=== PATIENT | female | born 1990 | race Caucasian/White ===

== ENCOUNTER 2016-11-14 20:44 | Inpatient (IN) | payer OTHER ==
[2016-11-14] MEDS ORDERED: Ondansetron 4 MG/2 ML SDV IVPUSH ONE (20:56)
[2016-11-14] MEDS ORDERED: Sodium Chloride 0.9% 1,000 ML IV ONE ×2 (20:56→23:36)
[2016-11-14] MEDS ORDERED: Morphine 10 MG/ML Syringe IV ONE (21:02)
--- NOTE | 2016-11-14 21:04 | EDM.PDOC ---
ED HPI GENERAL MEDICAL PROBLEM - General Chief Complaint: Abdominal Pain Stated Complaint: ABDOMINAL PAIN Time Seen by Provider: 11/14/16 21:02 Source of Information: Reports: Patient - History of Present Illness INITIAL COMMENTS - FREE TEXT/NARRATIVE: HISTORY AND PHYSICAL: History of present illness: Patient presents with abdominal pain right upper and lower quadrant pain she rates 8 out of 10 she has been anorexic over the last 24 hours with nausea no vomiting denies fever chills sweats She was seen today for [facility] and sounds like plain film x-rays were performed however she does not know results Previous cholecystectomy End history of PCO S Review of systems: As per history of present illness and below otherwise all systems reviewed and negative. Past medical history: As per history of present illness and as reviewed below otherwise noncontributory. Surgical history: As per history of present illness and as reviewed below otherwise noncontributory. Social history: No reported history of drug or alcohol abuse. Family history: As per history of present illness and as reviewed below otherwise noncontributory. Physical exam: HEENT: Atraumatic, normocephalic, pupils reactive, negative for conjunctival pallor or scleral icterus, mucous membranes moist, throat clear, neck supple, nontender, trachea midline. Lungs: Clear to auscultation, breath sounds equal bilaterally, chest nontender. Heart: S1S2, regular, negative for clicks, rubs, or JVD. Abdomen: Soft, nondistended, nontender on the left right lower quadrant is tender with guarding no rebound she is also tender on deep palpation right upper quadrant. Negative for masses or hepatosplenomegaly. Negative for costovertebral tenderness. Pelvis: Stable nontender. Genitourinary: Deferred. Rectal: Deferred. Extremities: Atraumatic, negative for cords or calf pain. Neurovascular unremarkable. Neuro: Awake, alert, oriented. Cranial nerves II through XII unremarkable. Cerebellum unremarkable. Motor and sensory unremarkable throughout. Exam nonfocal. Diagnostics: []Lab as below CT abdomen pelvis with and without contrast Therapeutics: []Liter normal saline bolus Zofran 8 mg IV Morphine 2 mg IV Impression: []Abdominal pain Acute pancreatitis Definitive disposition and diagnosis as appropriate pending reevaluation and review of above. 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, Musculoskeletal History: Reports: None Neurological History: Reports: None Psychiatric History: Reports: Anxiety, Depression Endocrine/Metabolic History: Reports: Hypoparathyroidism Hematologic History: Reports: None Immunologic History: Reports: None Oncologic (Cancer) History: Reports: None Dermatologic History: Reports: None - Infectious Disease History Infectious Disease History: Reports: None - Past Surgical History Head Surgeries/Procedures: Reports: None HEENT Surgical History: Reports: None Cardiovascular Surgical History: Reports: None Respiratory Surgical History: Reports: None GI Surgical History: Reports: Cholecystectomy Endocrine Surgical History: Reports: None Neurological Surgical History: Reports: None Dermatological Surgical History: Reports: None Social & Family History - Family History Family Medical History: Noncontributory - Tobacco Use Smoking Status *Q: Never Smoker - Caffeine Use Caffeine Use: Reports: Coffee, Soda - Recreational Drug Use Recreational Drug Use: No ED ROS GENERAL - Review of Systems Review Of Systems: ROS reveals no pertinent complaints other than HPI. ED EXAM, GENERAL - Physical Exam Exam: See Below Course - Vital Signs Last Recorded V/S: Last Vital Signs Temp 36.3 C 11/14/16 20:53 Pulse 101 H 11/14/16 20:53 Resp 18 11/14/16 20:53 BP 126/87 11/14/16 20:53 Pulse Ox 98 11/14/16 20:53 - Orders/Labs/Meds Orders: Active Orders 24 hr Category Date Time Status Abdomen Pelvis w wo Cont [CT] Stat Exams 11/14/16 21:02 Taken Labs: Laboratory Tests 11/14/16 11/14/16 11/14/16 Range/Units 20:50 20:50 21:08 WBC 10.13 (4.0-11.0) K/uL RBC 4.86 (4.30-5.90) M/uL Hgb 14.6 (12.0-16.0) g/dL Hct 43.9 (36.0-46.0) % MCV 90.3 (80.0-98.0) fL MCH 30.0 (27.0-32.0) pg MCHC 33.3 (31.0-37.0) g/dL RDW Std Deviation 43.1 (28.0-62.0) fl RDW Coeff of Jeane 13 (11.0-15.0) % Plt Count 206 (150-400) K/uL MPV 11.50 (7.40-12.00) fL Neut % (Auto) 56.6 (48.0-80.0) % Lymph % (Auto) 32.6 (16.0-40.0) % [place] % (Auto) 8.3 (0.0-15.0) % Eos % (Auto) 2.2 (0.0-7.0) % Baso % (Auto) 0.3 (0.0-1.5) % Neut # (Auto) 5.7 (1.4-5.7) K/uL Lymph # (Auto) 3.3 H (0.6-2.4) K/uL [place] # (Auto) 0.8 (0.0-0.8) K/uL Eos # (Auto) 0.2 (0.0-0.7) K/uL Baso # (Auto) 0.0 (0.0-0.1) K/uL Nucleated RBC % 0.0 /100WBC Nucleated RBCs # 0 K/uL Sodium (136-146) mmol/L Potassium (3.5-5.1) mmol/L Chloride (98-110) mmol/L Carbon Dioxide (21-31) mmol/L BUN (6.0-23.0) mg/dL Creatinine (0.6-1.5) mg/dL Est Cr Clr Drug Dosing mL/min Estimated GFR (MDRD) ml/min Glucose (60-110) mg/dL Calcium (8.8-10.8) mg/dL Total Bilirubin (0.1-1.5) mg/dL AST (5-40) IU/L ALT (8-54) IU/L Alkaline Phosphatase (40-150) Total Protein (6.0-8.0) g/dL Albumin (3.5-5.0) g/dL Globulin (2.0-3.5) g/dL Albumin/Globulin Ratio (1.3-2.8) Amylase (10-90) U/L Lipase (7-80) U/L Urine Color YELLOW Urine Appearance CLEAR Urine pH 6.0 (5.0-8.0) Ur Specific [place] 1.020 (1.001-1.035) Urine Protein NEGATIVE (NEGATIVE) mg/dL Urine Glucose (UA) NEGATIVE (NEGATIVE) mg/dL Urine Ketones NEGATIVE (NEGATIVE) mg/dL Urine Occult Blood NEGATIVE (NEGATIVE) Urine Nitrite NEGATIVE (NEGATIVE) Urine Bilirubin NEGATIVE (NEGATIVE) Urine Urobilinogen 0.2 (<2.0) EU/dL Ur Leukocyte Esterase NEGATIVE (NEGATIVE) Urine RBC 0-3 (0-2/HPF) Urine WBC 2-4 (0-5/HPF) Ur Epithelial Cells MODERATE (NONE-FEW) Urine Bacteria FEW (NEGATIVE) Urine HCG, Qual NEGATIVE (NEGATIVE) 11/14/16 Range/Units 21:08 WBC (4.0-11.0) K/uL RBC (4.30-5.90) M/uL Hgb (12.0-16.0) g/dL Hct (36.0-46.0) % MCV (80.0-98.0) fL MCH (27.0-32.0) pg MCHC (31.0-37.0) g/dL RDW Std Deviation (28.0-62.0) fl RDW Coeff of Jeane (11.0-15.0) % Plt Count (150-400) K/uL MPV (7.40-12.00) fL Neut % (Auto) (48.0-80.0) % Lymph % (Auto) (16.0-40.0) % [place] % (Auto) (0.0-15.0) % Eos % (Auto) (0.0-7.0) % Baso % (Auto) (0.0-1.5) % Neut # (Auto) (1.4-5.7) K/uL Lymph # (Auto) (0.6-2.4) K/uL [place] # (Auto) (0.0-0.8) K/uL Eos # (Auto) (0.0-0.7) K/uL Baso # (Auto) (0.0-0.1) K/uL Nucleated RBC % /100WBC Nucleated RBCs # K/uL Sodium 138 (136-146) mmol/L Potassium 4.1 (3.5-5.1) mmol/L Chloride 106 (98-110) mmol/L Carbon Dioxide 23 (21-31) mmol/L BUN 9 (6.0-23.0) mg/dL Creatinine 0.8 (0.6-1.5) mg/dL Est Cr Clr Drug Dosing 104.54 mL/min Estimated GFR (MDRD) > 60.0 ml/min Glucose 106 (60-110) mg/dL Calcium 9.2 (8.8-10.8) mg/dL Total Bilirubin 0.4 (0.1-1.5) mg/dL AST 154 H (5-40) IU/L ALT 288 H (8-54) IU/L Alkaline Phosphatase 53 (40-150) Total Protein 7.8 (6.0-8.0) g/dL Albumin 4.2 (3.5-5.0) g/dL Globulin 3.6 H (2.0-3.5) g/dL Albumin/Globulin Ratio 1.2 L (1.3-2.8) Amylase 82 (10-90) U/L Lipase 131 H (7-80) U/L Urine Color Urine Appearance Urine pH (5.0-8.0) Ur Specific [place] (1.001-1.035) Urine Protein (NEGATIVE) mg/dL Urine Glucose (UA) (NEGATIVE) mg/dL Urine Ketones (NEGATIVE) mg/dL Urine Occult Blood (NEGATIVE) Urine Nitrite (NEGATIVE) Urine Bilirubin (NEGATIVE) Urine Urobilinogen (<2.0) EU/dL Ur Leukocyte Esterase (NEGATIVE) Urine RBC (0-2/HPF) Urine WBC (0-5/HPF) Ur Epithelial Cells (NONE-FEW) Urine Bacteria (NEGATIVE) Urine HCG, Qual (NEGATIVE) Meds: Medications Discontinued Medications Generic Name Dose Route Start Last Admin Trade Name Freq PRN Reason Stop Dose Admin Hydromorphone HCl 1 mg 11/14/16 22:31 Dilaudid IVPUSH 11/14/16 22:32 ONETIME ONE Sodium Chloride 1,000 mls @ 999 mls/hr 11/14/16 20:56 11/14/16 21:13 Normal Saline IV 11/14/16 21:56 999 mls/hr STAT ONE Administration Iopamidol 100 ml 11/14/16 22:04 11/14/16 22:04 Isovue Multipack-370 (76%) IVPUSH 11/14/16 22:05 100 ml ONETIME STA Administration Morphine Sulfate 2 mg 11/14/16 21:02 11/14/16 21:16 Morphine IV 11/14/16 21:03 2 mg ONETIME ONE Administration Ondansetron HCl 8 mg 11/14/16 20:56 11/14/16 21:14 Zofran IVPUSH 11/14/16 20:57 8 mg ONETIME ONE Administration Departure - Departure Time of Disposition: 22:35 Disposition: Admitted As Inpatient 67 Condition: Fair Clinical Impression: Pancreatitis - Discharge Information Forms: ED Department Discharge - My Orders Last 24 Hours: My Active Orders 11/14/16 21:02 Abdomen Pelvis w wo Cont [CT] Stat - Assessment/Plan Last 24 Hours: My Active Orders 11/14/16 21:02 Abdomen Pelvis w wo Cont [CT] Stat
[2016-11-14 21:36] LABS: CHLORIDE,CL 106 mmol/L (98-110); SODIUM,NA 138 mmol/L (136-146)
[2016-11-14] MEDS ORDERED: Iopamidol 755 MG/ML 500 ML Multipack Bottle IVPUSH STA (22:04)
[2016-11-14] MEDS ORDERED: HYDROmorphone 2 MG/ML Syringe IVPUSH ONE (22:31)
[2016-11-14] MEDS ORDERED: Sodium Chloride 0.9% 1,000 ML IV SCH (22:45)
[2016-11-14] MEDS: HYDROmorphone 1 MG/ML Syringe IVPUSH PRN (23:56)
[2016-11-15] MEDS: Sodium Chloride 0.9% 1,000 ML IV SCH ×5 (00:33→20:24)
[2016-11-15] MEDS: HYDROmorphone 1 MG/ML Syringe IVPUSH PRN ×3 (04:47→21:56)
[2016-11-15] MEDS: Ondansetron 4 MG/2 ML SDV IVPUSH PRN ×4 (04:53→21:35)
[2016-11-15 05:26] LABS: CHLORIDE,CL 110 mmol/L (98-110); SODIUM,NA 140 mmol/L (136-146)
--- NOTE | 2016-11-15 11:34 | PCM.HP ---
H&P History of Present Illness - General Date of Service: 11/15/16 Admit Problem/Dx: Admission Diagnosis/Problem Admission Diagnosis/Problem Acute pancreatitis - History of Present Illness Initial Comments - Free Text/Narative: patient is admitted secondary to having epigastric abdominal pain since . Patient states that the pain progressively as gotten worse initially just mild in nature midepigastric pain with no other related symptoms. However over the course of the day patient started to feel nauseous and the pain became increasingly worse. On the next day the patient was unable to tolerate any by mouth without having severe abdominal pain. The patient stated it felt almost like she was having gallstones however she has had a cholecystectomy already done previously. Patient also became increasingly nauseous. Described the pain as sharp in nature 8 out of 10 in pain. She was unable to sleep overnight and decided to come to the ER secondary to her severe pain. In the ER the patient received antiemetic medication along with pain medication had laboratory work done which showed an elevation of her lipase level along with elevation of her AST and MALT. The patient also had a CT of the abdomen done which showed inflammation of her pancreas likely due to acute pancreatitis however one ulcers could not be ruled out. We did ask the patient if she did have any blood in her stool which the patient denies. Patient does have a past medical history of PCO S for which she was on metformin however she was unable to tolerate it. Up until last month she was on medications to help in terms of becoming however the family has decided just to hold off on that. Currently the only medication that she is on is levothyroxine for hypothyroidism. The patient stated that on Thursday due to her pain she did go in and see a walk-in clinic who felt that the patient might have a UTI and prescribed her an antibiotic which the patient did not take. Onset of Symptoms: Reports: Gradual abdominal pain Pain Score (Numeric/FACES): 0 - Related Data Allergies/Adverse Reactions: Allergies Allergy/AdvReac Type Severity Reaction Status Date / Time crab Allergy Abdominal Verified 11/14/16 23:08 Pain Penicillins Allergy Other Verified 11/14/16 20:51 Sulfa (Sulfonamide Allergy Other Verified 11/14/16 20:51 Antibiotics) Home Medications: Home Meds Sertraline [Zoloft] 50 mg PO BEDTIME 11/14/16 [History] Thyroid,Pork [[place]ie Thyroid] 1 tab PO DAILY 11/14/16 [History] Past Medical History HEENT History: Reports: None Cardiovascular History: Reports: None Respiratory History: Reports: Asthma, Other (See Below) Other Respiratory History: exercise induced Gastrointestinal History: Reports: None Genitourinary History: Reports: None 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, Musculoskeletal History: Reports: None Neurological History: Reports: None Psychiatric History: Reports: Anxiety, Depression Endocrine/Metabolic History: Reports: Hypoparathyroidism Hematologic History: Reports: None Immunologic History: Reports: None Oncologic (Cancer) History: Reports: None Dermatologic History: Reports: None - Infectious Disease History Infectious Disease History: Reports: Chicken Pox - Past Surgical History Head Surgeries/Procedures: Reports: None HEENT Surgical History: Reports: None Cardiovascular Surgical History: Reports: None Respiratory Surgical History: Reports: None GI Surgical History: Reports: Cholecystectomy Endocrine Surgical History: Reports: None Neurological Surgical History: Reports: None Dermatological Surgical History: Reports: None Social & Family History - Family History Family Medical History: Noncontributory - Tobacco Use Smoking Status *Q: Never Smoker Second Hand Smoke Exposure: No - Caffeine Use Caffeine Use: Reports: Coffee, Soda - Recreational Drug Use Recreational Drug Use: No H&P Review of Systems - Review of Systems: Review Of Systems: ROS reveals no pertinent complaints other than HPI. Exam - Exam Exam: See Below - Vital Signs Vital Signs: Last Vital Signs Temp 36.6 C 11/15/16 08:00 Pulse 90 11/15/16 08:00 Resp 18 11/15/16 08:00 BP 99/57 L 11/15/16 08:00 Pulse Ox 97 11/15/16 08:00 Weight: 118.5 kg - Exam General: Alert, Oriented Neck: Supple Lungs: Clear to Auscultation, Normal Respiratory Effort Cardiovascular: Regular Rate, Regular Rhythm GI/Abdominal Exam: Normal Bowel Sounds, Guarding, Rigid, Tender Extremities: Normal Inspection, Normal Range of Motion - Patient Data Lab Results Last 24 hrs: Laboratory Results - last 24 hr 11/15/16 11/15/16 Range/Units 04:50 04:50 WBC 7.04 (4.0-11.0) K/uL RBC 4.37 (4.30-5.90) M/uL Hgb 13.2 (12.0-16.0) g/dL Hct 39.9 (36.0-46.0) % MCV 91.3 (80.0-98.0) fL MCH 30.2 (27.0-32.0) pg MCHC 33.1 (31.0-37.0) g/dL RDW Std Deviation 43.8 (28.0-62.0) fl RDW Coeff of Jeane 13 (11.0-15.0) % Plt Count 158 (150-400) K/uL MPV 11.40 (7.40-12.00) fL Neut % (Auto) 63.9 (48.0-80.0) % Lymph % (Auto) 28.6 (16.0-40.0) % [place] % (Auto) 5.4 (0.0-15.0) % Eos % (Auto) 1.8 (0.0-7.0) % Baso % (Auto) 0.3 (0.0-1.5) % Neut # (Auto) 4.5 (1.4-5.7) K/uL Lymph # (Auto) 2.0 (0.6-2.4) K/uL [place] # (Auto) 0.4 (0.0-0.8) K/uL Eos # (Auto) 0.1 (0.0-0.7) K/uL Baso # (Auto) 0.0 (0.0-0.1) K/uL Nucleated RBC % 0.0 /100WBC Nucleated RBCs # 0 K/uL Sodium 140 (136-146) mmol/L Potassium 4.3 (3.5-5.1) mmol/L Chloride 110 (98-110) mmol/L Carbon Dioxide 23 (21-31) mmol/L BUN 7 (6.0-23.0) mg/dL Creatinine 0.7 (0.6-1.5) mg/dL Est Cr Clr Drug Dosing 119.47 mL/min Estimated GFR (MDRD) > 60.0 ml/min Glucose 100 (60-110) mg/dL Calcium 8.0 L (8.8-10.8) mg/dL Total Bilirubin 0.6 (0.1-1.5) mg/dL AST 117 H (5-40) IU/L ALT 220 H (8-54) IU/L Alkaline Phosphatase 45 (40-150) Total Protein 6.3 (6.0-8.0) g/dL Albumin 3.4 L (3.5-5.0) g/dL Globulin 2.9 (2.0-3.5) g/dL Albumin/Globulin Ratio 1.2 L (1.3-2.8) Triglycerides 134 (10-190) mg/dL Cholesterol 169 (131-240) mg/dL LDL Cholesterol, Calc 116 (60-180) mg/dL VLDL Cholesterol 27 (5-55) mg/dL HDL Cholesterol 26 L (40-80) mg/dL Cholesterol/HDL Ratio 6.5 H (3.3-6.0) Result Diagrams: 11/15/16 04:50 11/15/16 04:50 *Q Meaningful Use (ADM) - VTE *Q VTE Criteria *Q: - Stroke *Q Stroke Criteria *Q: - AMI *Q AMI Criteria *Q: - Problem List (1) Pancreatitis SNOMED Code(s): 56708581 ICD Code: K85.90 - ACUTE PANCREATITIS WITHOUT NECROSIS OR INFECTION, UNSP Status: Acute Current Visit: Yes (2) Abdominal pain SNOMED Code(s): 29334959 ICD Code: R10.9 - UNSPECIFIED ABDOMINAL PAIN Status: Acute Current Visit : No Qualifiers: Abdominal location: right lower quadrant Qualified Code(s): R10.31 - Right lower quadrant pain Problem List Initiated/Reviewed/Updated: Yes Orders Last 24hrs: Active Orders 24 hr Category Date Time Status Nothing Per Oral Diet [DIET] Diet 11/14/16 Dinner Active Abdomen Ltd [] Routine Exams 11/15/16 11:16 Ordered HYDROmorphone [Dilaudid] Med 11/14/16 23:38 Active 1 mg IVPUSH Q2H PRN Ondansetron [Zofran] Med 11/14/16 23:38 Active 4 mg IVPUSH Q4H PRN Pantoprazole [ProTONIX IV] 40 mg Med 11/15/16 11:30 Active Sodium Chloride 0.9% [Normal Saline] 10 ml IVPUSH DAILY Sodium Chloride 0.9% [Normal Saline] 1,000 ml Med 11/14/16 23:45 Active IV ASDIRECTED Medication Orders Hydromorphone HCl (Dilaudid) 1 mg IVPUSH Q2H PRN PRN Reason: Pain Last Admin: 11/15/16 10:16 Dose: 1 mg Admin: 11/15/16 04:47 Dose: 1 mg Admin: 11/14/16 23:56 Dose: 1 mg Sodium Chloride (Normal Saline) 1,000 mls @ 200 mls/hr IV ASDIRECTED [facility] Last Admin: 11/15/16 10:24 Dose: 200 mls/hr Infusion: 11/15/16 10:16 Dose: 200 mls/hr Admin: 11/15/16 05:16 Dose: 200 mls/hr Infusion: 11/15/16 05:16 Dose: 200 mls/hr Admin: 11/15/16 00:33 Dose: 200 mls/hr Pantoprazole Sodium 40 mg/ (Sodium Chloride) 10 mls @ 300 mls/hr IVPUSH DAILY [facility] Ondansetron HCl (Zofran) 4 mg IVPUSH Q4H PRN PRN Reason: Nausea/Vomiting Last Admin: 11/15/16 10:16 Dose: 4 mg Admin: 11/15/16 04:53 Dose: 4 mg Assessment/Plan Comment:: assessment and plan #1. Acute epigastric pain with nausea and vomiting with elevated lipase and transaminase levelsalong with a CT of the abdomen that shows inflammation/ edematous pancreas most likely etiology is acute pancreatitis other etiologies to consider include duodenal ulcer which also can produce elevated lipase levels and similar epigastric/abdominal pain -Aggressive IV fluids at a rate of 200 mL per hour -Adequate pain control with Dilaudid every 2 hr 1 mg IV push -Zofran scheduled to control nausea vomiting -BMP followed to ensure appropriate lytes -Patient shall be nothing by mouth with minimum ice chips to ensure appropriate bowel rest -Shall get abdomen ultrasound to ensure no gallstones or ductal dilation -Start Protonix 40 mg IV daily for possible duodenal ulcer -Continue to follow the patient and ensure vitals are stable along with appropriate I's and O's. Admit greater than 2 midnights inpatient status
[2016-11-15] MEDS: Pantoprazole 40 MG in Sodium Chloride 0.9% 10 ML IVPUSH SCH (11:48)
[2016-11-15] MEDS: Morphine 2 MG/ML Syringe IVPUSH PRN ×2 (16:29→19:35)
[2016-11-16] MEDS: Sodium Chloride 0.9% 1,000 ML IV SCH ×5 (01:27→22:26)
[2016-11-16] MEDS: Ondansetron 4 MG/2 ML SDV IVPUSH PRN ×5 (01:28→19:41)
[2016-11-16] MEDS: HYDROmorphone 1 MG/ML Syringe IVPUSH PRN ×6 (01:50→22:31)
[2016-11-16 05:25] LABS: CHLORIDE,CL 110 mmol/L (98-110); SODIUM,NA 139 mmol/L (136-146)
--- NOTE | 2016-11-16 08:40 | PCM.PN ---
- Review of Systems Systems Review Comment:: abdominal pain improving. - Patient Data Vitals - Most Recent: Last Vital Signs Temp 37.1 C 11/16/16 07:56 Pulse 98 11/16/16 07:56 Resp 16 11/16/16 07:56 BP 105/58 L 11/16/16 07:56 Pulse Ox 93 L 11/16/16 07:56 Weight - Most Recent: 118.5 kg I&O - Last 24 Hours: Intake & Output 11/15/16 11/16/16 11/16/16 22:59 06:59 14:59 Intake Total 1989 2029 Output Total 2070 5950 Balance -81 -720 Lab Results Last 24 Hours: Laboratory Results - last 24 hr 11/16/16 11/16/16 Range/Units 04:35 04:35 WBC 5.94 (4.0-11.0) K/uL RBC 4.10 L (4.30-5.90) M/uL Hgb 12.3 (12.0-16.0) g/dL Hct 37.8 (36.0-46.0) % MCV 92.2 (80.0-98.0) fL MCH 30.0 (27.0-32.0) pg MCHC 32.5 (31.0-37.0) g/dL RDW Std Deviation 44.5 (28.0-62.0) fl RDW Coeff of Jeane 13 (11.0-15.0) % Plt Count 153 (150-400) K/uL MPV 12.10 H (7.40-12.00) fL Neut % (Auto) 63.1 (48.0-80.0) % Lymph % (Auto) 27.6 (16.0-40.0) % [place] % (Auto) 7.2 (0.0-15.0) % Eos % (Auto) 1.9 (0.0-7.0) % Baso % (Auto) 0.2 (0.0-1.5) % Neut # (Auto) 3.8 (1.4-5.7) K/uL Lymph # (Auto) 1.6 (0.6-2.4) K/uL [place] # (Auto) 0.4 (0.0-0.8) K/uL Eos # (Auto) 0.1 (0.0-0.7) K/uL Baso # (Auto) 0.0 (0.0-0.1) K/uL Nucleated RBC % 0.0 /100WBC Nucleated RBCs # 0 K/uL Sodium 139 (136-146) mmol/L Potassium 4.0 (3.5-5.1) mmol/L Chloride 110 (98-110) mmol/L Carbon Dioxide 22 (21-31) mmol/L BUN 7 (6.0-23.0) mg/dL Creatinine 0.7 (0.6-1.5) mg/dL Est Cr Clr Drug Dosing 119.47 mL/min Estimated GFR (MDRD) > 60.0 ml/min Glucose 91 (60-110) mg/dL Calcium 8.0 L (8.8-10.8) mg/dL Amylase 55 (10-90) U/L Lipase 71 (7-80) U/L Med Orders - Current: Current Medications Hydromorphone HCl (Dilaudid) 1 mg IVPUSH Q2H PRN PRN Reason: Pain Last Admin: 11/16/16 05:49 Dose: 1 mg Sodium Chloride (Normal Saline) 1,000 mls @ 200 mls/hr IV ASDIRECTED [facility] Last Admin: 11/16/16 06:31 Dose: 200 mls/hr Pantoprazole Sodium 40 mg/ (Sodium Chloride) 10 mls @ 300 mls/hr IVPUSH DAILY [facility] Last Admin: 11/15/16 11:48 Dose: 300 mls/hr Ondansetron HCl (Zofran) 4 mg IVPUSH Q4H PRN PRN Reason: Nausea/Vomiting Last Admin: 11/16/16 05:33 Dose: 4 mg Discontinued Medications Hydromorphone HCl (Dilaudid) 1 mg IVPUSH ONETIME ONE Stop: 11/14/16 22:32 Last Admin: 11/14/16 22:36 Dose: 1 mg Sodium Chloride (Normal Saline) 1,000 mls @ 999 mls/hr IV STAT ONE Stop: 11/14/16 21:56 Last Admin: 11/14/16 21:13 Dose: 999 mls/hr Sodium Chloride (Normal Saline) 1,000 mls @ 150 mls/hr IV STAT [facility] Last Admin: 11/14/16 22:40 Dose: 150 mls/hr Sodium Chloride (Normal Saline) 1,000 mls @ 999 mls/hr IV ONETIME ONE Stop: 11/15/16 00:36 Last Admin: 11/14/16 23:36 Dose: 999 mls/hr Iopamidol (Isovue Multipack-370 (76%)) 100 ml IVPUSH ONETIME STA Stop: 11/14/16 22:05 Last Admin: 11/14/16 22:04 Dose: 100 ml Morphine Sulfate (Morphine) 2 mg IV ONETIME ONE Stop: 11/14/16 21:03 Last Admin: 11/14/16 21:16 Dose: 2 mg Morphine Sulfate (Morphine) 2 mg IVPUSH Q2H PRN PRN Reason: Abdominal Pain Last Admin: 11/15/16 19:35 Dose: 2 mg Ondansetron HCl (Zofran) 8 mg IVPUSH ONETIME ONE Stop: 11/14/16 20:57 Last Admin: 11/14/16 21:14 Dose: 8 mg - Exam General: Alert, Oriented Lungs: Clear to Auscultation, Normal Respiratory Effort GI/Abdominal Exam: Normal Bowel Sounds, Soft, Non-Tender, No Organomegaly, No Distention, No Abnormal Bruit, No Mass, Pelvis Stable Extremities: No Pedal Edema Skin: Warm, Dry, Intact - Problem List Review Problem List Initiated/Reviewed/Updated: Yes - My Orders Last 24 Hours: My Active Orders 11/16/16 Lunch Clear Liquid Diet [DIET] 11/17/16 05:11 BASIC METABOLIC PANEL,BMP [CHEM] AM CBC WITH AUTO DIFF [HEME] AM - Plan Plan:: assessment and plan 26 yo female admitted with acute pancreatitis. Will advance diet to clear liquids. s/p cholecystectomy, no heavy alcohol use, and normal triglycerides.
[2016-11-16] MEDS: Pantoprazole 40 MG in Sodium Chloride 0.9% 10 ML IVPUSH SCH (08:59)
[2016-11-16] MEDS: Acetaminophen 325 MG/10.15 ML ML PO PRN ×2 (10:45→16:34)
[2016-11-17] MEDS: Acetaminophen 325 MG/10.15 ML ML PO PRN ×2 (00:27→06:20)
[2016-11-17] MEDS: Ondansetron 4 MG/2 ML SDV IVPUSH PRN ×5 (00:31→19:30)
[2016-11-17] MEDS: HYDROmorphone 1 MG/ML Syringe IVPUSH PRN ×8 (01:02→22:58)
[2016-11-17] MEDS: Sodium Chloride 0.9% 1,000 ML IV SCH ×4 (03:45→19:28)
[2016-11-17 06:49] LABS: CHLORIDE,CL 107 mmol/L (98-110); SODIUM,NA 138 mmol/L (136-146)
[2016-11-17] MEDS: Pantoprazole 40 MG in Sodium Chloride 0.9% 10 ML IVPUSH SCH (09:23)
[2016-11-17] MEDS: Promethazine 25 MG/ML SDV IM PRN ×3 (10:54→22:59)
--- NOTE | 2016-11-17 11:33 | CR ---
Single view chest For portable technique and degree of inspiration there is no acute infiltrate failure or volume loss . Impression: No acute pulmonary disease
--- NOTE | 2016-11-17 12:14 | CT ---
EXAM DATE: 11/14/16 PATIENT'S AGE: 26 Patient: DIANE MANRIQUEZ Facility: [place], [place] Site . Site : 1990 Study: CT Abdomen/Pelvis W/ and W/O Cont [id number]/11/2017 10:10:57 PM Ordering Physician: oSfie Garner Final Report: INDICATION: Abdominal pain right TECHNIQUE: CT abdomen and pelvis acquired with and without i.v. 100 mL Isovue 370. Coronal and sagittal reformats were obtained. COMPARISON: 08/10/2015 FINDINGS: Lower chest: Unremarkable. Liver: Unremarkable. Spleen: Unremarkable. Pancreas: Subtle retroperitoneal edema is seen adjacent to the 2nd portion of the duodenum and pancreatic head. No pancreatic necrosis identified. Gallbladder and bile ducts: The patient is status post cholecystectomy. Kidneys: Unremarkable. No kidney or ureteral stones and no hydronephrosis seen. Adrenal glands: Unremarkable. GI tract: Unremarkable. The appendix is normal in appearance and size. Vascular: Unremarkable. Lymph nodes: Unremarkable. Miscellaneous: Unremarkable. No pneumoperitoneum is seen. No significant ascites is noted. Pelvic Organs: Unremarkable. Bones: Unremarkable for age. IMPRESSION: 1. Subtle retroperitoneal edema is seen adjacent to the 2nd portion of the duodenum and pancreatic head. Correlation with serum amylase and lipase levels are recommended to exclude acute pancreatitis. Duodenitis or peptic ulcer disease should also be considered. Dictated by Morgan Suarez MD @ 11/14/2016 10:21:40 PM Dictated by: Morgan Suarez MD @ 11/14/2016 22:22:00 (Electronic Signature) Report Signed by Proxy. NANCY
--- NOTE | 2016-11-17 12:23 | US ---
EXAM DATE: 11/14/16 PATIENT'S AGE: 26 Patient: DIANE MANRIQUEZ Facility: [place], [place] Site . Site : 1990 Study: US Abdomen [id number] 12:52:12 PM Ordering Physician: Brianda Winters Final Report: INDICATION: Acute pancreatitis. TECHNIQUE: Ultrasound abdomen limited. Sonographic images of the right upper quadrant were obtained using vang-scale and color Doppler images. COMPARISON: CT 02/2017 FINDINGS: Liver: Normal in size and echotexture. No masses. No intrahepatic biliary dilatation. Gallbladder: Surgically absent. Common bile duct: Normal in caliber. Pancreas: The visualized portions of the pancreas demonstrates no mass lesion. No pancreatic ductal dilatation identified. Right kidney: Measures 12.5 cm in length. Normal echotexture and cortex. No masses, stones, or hydronephrosis. Miscellaneous: No ascites in the right upper quadrant. IMPRESSION: 1. No biliary or pancreatic ductal dilatation identified. 2. Findings of pancreatitis are better evaluated on recent CT. Dictated by Zain Colorado MD @ Nov 15 2016 1:18PM (Electronic Signature) Report Signed by Proxy. NANCY
[2016-11-17] MEDS: Thyroid 60 MG Tab PO SCH (16:56)
--- NOTE | 2016-11-17 17:31 | PCM.PN ---
- General Info Date of Service: 11/17/16 Admission Dx/Problem (Free Text): Patient is still having abdominal pain secondary to acute pancreatitis she still having episodes of nausea in particular right after she receives her Dilaudid dose. She tried to take by mouth intake however was unable to tolerate any by mouth. - Review of Systems General: Reports: Weakness, Fatigue HEENT: Reports: Headaches Pulmonary: Reports: No Symptoms Cardiovascular: Reports: No Symptoms Gastrointestinal: Reports: Abdominal Pain, Constipation, Decreased Appetite, Nausea, Vomiting - Patient Data Vitals - Most Recent: Last Vital Signs Temp 37.3 C 11/17/16 16:00 Pulse 112 H 11/17/16 16:00 Resp 20 11/17/16 16:00 BP 125/75 11/17/16 16:00 Pulse Ox 87 L 11/17/16 16:00 Weight - Most Recent: 118.5 kg I&O - Last 24 Hours: Intake & Output 11/17/16 11/17/16 11/17/16 06:59 14:59 22:59 Intake Total 1586 2008 81 Output Total 1800 2750 Balance -214 2008 -193 Lab Results Last 24 Hours: Laboratory Results - last 24 hr 11/17/16 11/17/16 11/17/16 Range/Units 06:14 06:14 10:55 WBC 7.34 (4.0-11.0) K/uL RBC 4.13 L (4.30-5.90) M/uL Hgb 12.4 (12.0-16.0) g/dL Hct 37.4 (36.0-46.0) % MCV 90.6 (80.0-98.0) fL MCH 30.0 (27.0-32.0) pg MCHC 33.2 (31.0-37.0) g/dL RDW Std Deviation 43.0 (28.0-62.0) fl RDW Coeff of Jeane 13 (11.0-15.0) % Plt Count 145 L (150-400) K/uL MPV 11.50 (7.40-12.00) fL Neut % (Auto) 73.7 (48.0-80.0) % Lymph % (Auto) 18.7 (16.0-40.0) % [place] % (Auto) 6.8 (0.0-15.0) % Eos % (Auto) 0.7 (0.0-7.0) % Baso % (Auto) 0.1 (0.0-1.5) % Neut # (Auto) 5.4 (1.4-5.7) K/uL Lymph # (Auto) 1.4 (0.6-2.4) K/uL [place] # (Auto) 0.5 (0.0-0.8) K/uL Eos # (Auto) 0.1 (0.0-0.7) K/uL Baso # (Auto) 0.0 (0.0-0.1) K/uL Nucleated RBC % 0.0 /100WBC Nucleated RBCs # 0 K/uL Sodium 138 (136-146) mmol/L Potassium 3.5 (3.5-5.1) mmol/L Chloride 107 (98-110) mmol/L Carbon Dioxide 23 (21-31) mmol/L BUN 5 L (6.0-23.0) mg/dL Creatinine 0.7 (0.6-1.5) mg/dL Est Cr Clr Drug Dosing 119.47 mL/min Estimated GFR (MDRD) > 60.0 ml/min Glucose 89 (60-110) mg/dL Calcium 8.1 L (8.8-10.8) mg/dL Urine Color YELLOW Urine Appearance CLEAR Urine pH 5.5 (5.0-8.0) Ur Specific [place] 1.010 (1.001-1.035) Urine Protein NEGATIVE (NEGATIVE) mg/dL Urine Glucose (UA) NEGATIVE (NEGATIVE) mg/dL Urine Ketones 15 H (NEGATIVE) mg/dL Urine Occult Blood NEGATIVE (NEGATIVE) Urine Nitrite NEGATIVE (NEGATIVE) Urine Bilirubin NEGATIVE (NEGATIVE) Urine Urobilinogen 0.2 (<2.0) EU/dL Ur Leukocyte Esterase NEGATIVE (NEGATIVE) Urine RBC 0-2 (0-2/HPF) Urine WBC 0-2 (0-5/HPF) Ur Epithelial Cells FEW (NONE-FEW) Amorphous Sediment RARE (NEGATIVE) Urine Bacteria FEW (NEGATIVE) Odilon Results Last 24 Hours: Microbiology 11/17/16 01:10 Anaerobic Blood Culture - Final Blood - Arm, Left Med Orders - Current: Current Medications Acetaminophen (Tylenol) 325 mg PO Q4H PRN PRN Reason: Pain Last Admin: 11/17/16 06:20 Dose: 325 mg Hydromorphone HCl (Dilaudid) 1 mg IVPUSH Q2H PRN PRN Reason: Pain Last Admin: 11/17/16 17:09 Dose: 1 mg Sodium Chloride (Normal Saline) 1,000 mls @ 200 mls/hr IV ASDIRECTED BERNABE Last Admin: 11/17/16 14:25 Dose: 200 mls/hr Pantoprazole Sodium 40 mg/ (Sodium Chloride) 10 mls @ 300 mls/hr IVPUSH DAILY [facility] Last Admin: 11/17/16 09:23 Dose: 300 mls/hr Ondansetron HCl (Zofran) 4 mg IVPUSH Q4H PRN PRN Reason: Nausea/Vomiting Last Admin: 11/17/16 14:26 Dose: 4 mg Promethazine HCl (Phenergan) 12.5 mg IM Q4H PRN PRN Reason: Nausea/Vomiting Last Admin: 11/17/16 17:02 Dose: 12.5 mg Sertraline HCl (Zoloft) 50 mg PO BEDTIME [facility] Thyroid ([place] Thyroid) 60 mg PO DAILY [facility] Last Admin: 11/17/16 16:56 Dose: Not Given Discontinued Medications Hydromorphone HCl (Dilaudid) 1 mg IVPUSH ONETIME ONE Stop: 11/14/16 22:32 Last Admin: 11/14/16 22:36 Dose: 1 mg Sodium Chloride (Normal Saline) 1,000 mls @ 999 mls/hr IV STAT ONE Stop: 11/14/16 21:56 Last Admin: 11/14/16 21:13 Dose: 999 mls/hr Sodium Chloride (Normal Saline) 1,000 mls @ 150 mls/hr IV STAT [facility]ER[facility] Last Admin: 11/14/16 22:40 Dose: 150 mls/hr Sodium Chloride (Normal Saline) 1,000 mls @ 999 mls/hr IV ONETIME ONE Stop: 11/15/16 00:36 Last Admin: 11/14/16 23:36 Dose: 999 mls/hr Iopamidol (Isovue Multipack-370 (76%)) 100 ml IVPUSH ONETIME STA Stop: 11/14/16 22:05 Last Admin: 11/14/16 22:04 Dose: 100 ml Morphine Sulfate (Morphine) 2 mg IV ONETIME ONE Stop: 11/14/16 21:03 Last Admin: 11/14/16 21:16 Dose: 2 mg Morphine Sulfate (Morphine) 2 mg IVPUSH Q2H PRN PRN Reason: Abdominal Pain Last Admin: 11/15/16 19:35 Dose: 2 mg Ondansetron HCl (Zofran) 8 mg IVPUSH ONETIME ONE Stop: 11/14/16 20:57 Last Admin: 11/14/16 21:14 Dose: 8 mg - Exam General: Oriented, Mild Distress HEENT: Pupils Equal Neck: Supple Lungs: Clear to Auscultation, Normal Respiratory Effort Cardiovascular: Regular Rate, Regular Rhythm GI/Abdominal Exam: Rigid, Rebound, Tender, Abnormal Bowel Sounds Extremities: Normal Inspection, No Pedal Edema - Problem List & Annotations (1) Pancreatitis SNOMED Code(s): 96737788 Code(s): K85.90 - ACUTE PANCREATITIS WITHOUT NECROSIS OR INFECTION, UNSP Status: Acute Current Visit: Yes (2) Abdominal pain SNOMED Code(s): 96800187 Code(s): R10.9 - UNSPECIFIED ABDOMINAL PAIN Status: Acute Current Visit: No Qualifiers: Abdominal location: right lower quadrant Qualified Code(s): R10.31 - Right lower quadrant pain - Problem List Review Problem List Initiated/Reviewed/Updated: Yes - My Orders Last 24 Hours: My Active Orders 11/17/16 10:37 Promethazine [Phenergan] 12.5 mg IM Q4H PRN 11/17/16 15:15 Thyroid [[place] Thyroid] 60 mg PO DAILY 11/17/16 21:00 Sertraline [Zoloft] 50 mg PO BEDTIME - Plan Plan:: assessment and plan 26 yo female admitted with acute pancreatitis. - She was unable to tolerate advancement of diet as such she's back on IV fluids - Patient receiving Phenergan as well as Zofran for nausea/vomiting -Patient still receiving Dilaudid every 2 hours IV for pain control -We shall continue to watch patient's by mouth status and pain that progressed diet as tolerated. -She is ultrasound did not show any biliary dilatation or any gallstones.
[2016-11-17] MEDS: Sertraline 50 MG Tab PO SCH (20:29)
[2016-11-18] MEDS: Sodium Chloride 0.9% 1,000 ML IV SCH ×5 (00:35→20:49)
[2016-11-18] MEDS: Ondansetron 4 MG/2 ML SDV IVPUSH PRN ×5 (02:31→22:09)
[2016-11-18] MEDS: HYDROmorphone 1 MG/ML Syringe IVPUSH PRN ×7 (02:47→22:12)
[2016-11-18 05:03] LABS: CHLORIDE,CL 110 mmol/L (98-110); SODIUM,NA 141 mmol/L (136-146)
[2016-11-18] MEDS: Promethazine 25 MG/ML SDV IM PRN ×3 (07:31→19:26)
[2016-11-18] MEDS: Thyroid 60 MG Tab PO SCH ×2 (09:11→09:41)
[2016-11-18] MEDS: Pantoprazole 40 MG in Sodium Chloride 0.9% 10 ML IVPUSH SCH (09:11)
--- NOTE | 2016-11-18 19:39 | PCM.PN ---
<Valente Rivers Z - Last Filed: 11/18/16 19:33> - General Info Date of Service: 11/18/16 Subjective Update: She is still having nausea and vomiting with by mouth intake patient still having abdominal pain secondary to acute pancreatitis. The abdominal pain has improved since yesterday however the nausea and vomiting with by mouth intake is still a problem for the patient. As such at this point in time we're going to allow the patient only to have ice chips to give the bowel proper rest and proper pain control. Functional Status: Reports: Pain Controlled - Review of Systems General: Reports: Weakness HEENT: Reports: No Symptoms Pulmonary: Reports: No Symptoms Cardiovascular: Reports: No Symptoms Gastrointestinal: Reports: Abdominal Pain, Nausea, Vomiting Genitourinary: Reports: No Symptoms Musculoskeletal: Reports: No Symptoms Skin: Reports: No Symptoms Neurological: Reports: No Symptoms Psychiatric: Reports: No Symptoms - Patient Data Vitals - Most Recent: Last Vital Signs Temp 37.6 C 11/18/16 16:00 Pulse 102 H 11/18/16 16:00 Resp 20 11/18/16 16:00 BP 141/73 H 11/18/16 16:00 Pulse Ox 91 L 11/18/16 16:00 Weight - Most Recent: 118.5 kg I&O - Last 24 Hours: Intake & Output 11/18/16 11/18/16 11/18/16 06:59 14:59 22:59 Intake Total 1050 10 2024 Output Total 1890 750 Balance -919 72 6921 Lab Results Last 24 Hours: Laboratory Results - last 24 hr 11/18/16 11/18/16 Range/Units 04:38 04:38 WBC 6.98 (4.0-11.0) K/uL RBC 4.06 L (4.30-5.90) M/uL Hgb 12.3 (12.0-16.0) g/dL Hct 36.8 (36.0-46.0) % MCV 90.6 (80.0-98.0) fL MCH 30.3 (27.0-32.0) pg MCHC 33.4 (31.0-37.0) g/dL RDW Std Deviation 42.3 (28.0-62.0) fl RDW Coeff of Jeane 13 (11.0-15.0) % Plt Count 129 L (150-400) K/uL MPV 12.30 H (7.40-12.00) fL Neut % (Auto) 79.2 (48.0-80.0) % Lymph % (Auto) 15.2 L (16.0-40.0) % [place] % (Auto) 5.0 (0.0-15.0) % Eos % (Auto) 0.3 (0.0-7.0) % Baso % (Auto) 0.3 (0.0-1.5) % Neut # (Auto) 5.5 (1.4-5.7) K/uL Lymph # (Auto) 1.1 (0.6-2.4) K/uL [place] # (Auto) 0.4 (0.0-0.8) K/uL Eos # (Auto) 0.0 (0.0-0.7) K/uL Baso # (Auto) 0.0 (0.0-0.1) K/uL Nucleated RBC % 0.0 /100WBC Nucleated RBCs # 0 K/uL Sodium 141 (136-146) mmol/L Potassium 4.2 (3.5-5.1) mmol/L Chloride 110 (98-110) mmol/L Carbon Dioxide 21 (21-31) mmol/L BUN 7 (6.0-23.0) mg/dL Creatinine 0.7 (0.6-1.5) mg/dL Est Cr Clr Drug Dosing 119.47 mL/min Estimated GFR (MDRD) > 60.0 ml/min Glucose 98 (60-110) mg/dL Calcium 8.3 L (8.8-10.8) mg/dL Phosphorus 3.4 (2.4-4.7) mg/dL Magnesium 1.7 (1.5-2.3) mEq/L Odilon Results Last 24 Hours: Microbiology 11/17/16 01:10 Aerobic Blood Culture - Preliminary Blood - Arm, Left NO GROWTH AFTER 1 DAY Anaerobic Blood Culture - Final 11/17/16 01:00 Aerobic Blood Culture - Preliminary Blood - Arm, Left NO GROWTH AFTER 1 DAY Anaerobic Blood Culture - Preliminary NO GROWTH AFTER 1 DAY Med Orders - Current: Current Medications Acetaminophen (Tylenol) 325 mg PO Q4H PRN PRN Reason: Pain Last Admin: 11/17/16 06:20 Dose: 325 mg Hydromorphone HCl (Dilaudid) 1 mg IVPUSH Q2H PRN PRN Reason: Pain Last Admin: 11/18/16 19:31 Dose: 1 mg Sodium Chloride (Normal Saline) 1,000 mls @ 200 mls/hr IV ASDIRECTED BERNABE Last Admin: 11/18/16 15:54 Dose: 200 mls/hr Pantoprazole Sodium 40 mg/ (Sodium Chloride) 10 mls @ 300 mls/hr IVPUSH DAILY [facility] Last Admin: 11/18/16 09:11 Dose: 300 mls/hr Ondansetron HCl (Zofran) 4 mg IVPUSH Q4H PRN PRN Reason: Nausea/Vomiting Last Admin: 11/18/16 16:00 Dose: 4 mg Promethazine HCl (Phenergan) 12.5 mg IM Q4H PRN PRN Reason: Nausea/Vomiting Last Admin: 11/18/16 19:26 Dose: 12.5 mg Sertraline HCl (Zoloft) 50 mg PO BEDTIME [facility]ER[facility]BE Last Admin: 11/17/16 20:29 Dose: 50 mg Thyroid ([place] Thyroid) 60 mg PO DAILY [facility] Last Admin: 11/18/16 09:41 Dose: 60 mg Discontinued Medications Hydromorphone HCl (Dilaudid) 1 mg IVPUSH ONETIME ONE Stop: 11/14/16 22:32 Last Admin: 11/14/16 22:36 Dose: 1 mg Sodium Chloride (Normal Saline) 1,000 mls @ 999 mls/hr IV STAT ONE Stop: 11/14/16 21:56 Last Admin: 11/14/16 21:13 Dose: 999 mls/hr Sodium Chloride (Normal Saline) 1,000 mls @ 150 mls/hr IV STAT [facility] Last Admin: 11/14/16 22:40 Dose: 150 mls/hr Sodium Chloride (Normal Saline) 1,000 mls @ 999 mls/hr IV ONETIME ONE Stop: 11/15/16 00:36 Last Admin: 11/14/16 23:36 Dose: 999 mls/hr Iopamidol (Isovue Multipack-370 (76%)) 100 ml IVPUSH ONETIME STA Stop: 11/14/16 22:05 Last Admin: 11/14/16 22:04 Dose: 100 ml Morphine Sulfate (Morphine) 2 mg IV ONETIME ONE Stop: 11/14/16 21:03 Last Admin: 11/14/16 21:16 Dose: 2 mg Morphine Sulfate (Morphine) 2 mg IVPUSH Q2H PRN PRN Reason: Abdominal Pain Last Admin: 11/15/16 19:35 Dose: 2 mg Ondansetron HCl (Zofran) 8 mg IVPUSH ONETIME ONE Stop: 11/14/16 20:57 Last Admin: 11/14/16 21:14 Dose: 8 mg - Exam General: Alert HEENT: Pupils Equal Neck: Supple Lungs: Clear to Auscultation Cardiovascular: Regular Rate GI/Abdominal Exam: Guarding, Tender, Abnormal Bowel Sounds - Problem List & Annotations (1) Pancreatitis SNOMED Code(s): 24892739 Code(s): K85.90 - ACUTE PANCREATITIS WITHOUT NECROSIS OR INFECTION, UNSP Status: Acute Current Visit: Yes (2) Abdominal pain SNOMED Code(s): 16584813 Code(s): R10.9 - UNSPECIFIED ABDOMINAL PAIN Status: Acute Current Visit: No Qualifiers: Abdominal location: right lower quadrant Qualified Code(s): R10.31 - Right lower quadrant pain - Problem List Review Problem List Initiated/Reviewed/Updated: Yes - My Orders Last 24 Hours: My Active Orders 11/17/16 21:00 Sertraline [Zoloft] 50 mg PO BEDTIME - Plan Plan:: assessment and plan 26 yo female admitted with acute pancreatitis. - She was unable to tolerate advancement of diet as such she's back on IV fluids , we will allow the patient to have ice chips at the present moment and to give the pancreas appropriate rest - Patient receiving Phenergan as well as Zofran for nausea/vomiting continue to monitor the patient's status -Patient still receiving Dilaudid every 2 hours IV for pain control -We shall continue to watch patient's by mouth status and pain that progressed diet as tolerated. -She is ultrasound did not show any biliary dilatation or any gallstones. <Jay Layton - Last Filed: 11/19/16 09:26> - General Info Subjective Update: I was present with the resident during history and examination. I discussed the case with the resident and agree with the findings and plan as documented in the residents note. - Patient Data Vitals - Most Recent: Last Vital Signs Temp 37.2 C 11/19/16 08:00 Pulse 87 11/19/16 08:00 Resp 20 11/19/16 08:00 BP 139/80 11/19/16 08:00 Pulse Ox 93 L 11/19/16 08:00 I&O - Last 24 Hours: Intake & Output 11/18/16 11/19/16 11/19/16 22:59 06:59 14:59 Intake Total 2984 1100 1000 Output Total 750 1000 Balance 2234 100 1000 Odilon Results Last 24 Hours: Microbiology 11/17/16 01:10 Aerobic Blood Culture - Preliminary Blood - Arm, Left NO GROWTH AFTER 2 DAYS Anaerobic Blood Culture - Final 11/17/16 01:00 Aerobic Blood Culture - Preliminary Blood - Arm, Left NO GROWTH AFTER 2 DAYS Anaerobic Blood Culture - Preliminary NO GROWTH AFTER 2 DAYS Med Orders - Current: Current Medications Acetaminophen (Tylenol) 325 mg PO Q4H PRN PRN Reason: Pain Last Admin: 11/17/16 06:20 Dose: 325 mg Hydromorphone HCl (Dilaudid) 2 mg PO Q2H PRN PRN Reason: Abdominal Pain Sodium Chloride (Normal Saline) 1,000 mls @ 200 mls/hr IV ASDIRECTED [facility] Last Admin: 11/19/16 07:14 Dose: 200 mls/hr Pantoprazole Sodium 40 mg/ (Sodium Chloride) 10 mls @ 300 mls/hr IVPUSH DAILY [facility] Last Admin: 11/19/16 09:15 Dose: 300 mls/hr Ondansetron HCl (Zofran) 4 mg IVPUSH Q4H PRN PRN Reason: Nausea/Vomiting Last Admin: 11/19/16 09:14 Dose: 4 mg Promethazine HCl (Phenergan) 12.5 mg IM Q4H PRN PRN Reason: Nausea/Vomiting Last Admin: 11/19/16 06:33 Dose: 12.5 mg Sertraline HCl (Zoloft) 50 mg PO BEDTIME [facility] Last Admin: 11/18/16 20:28 Dose: 50 mg Thyroid ([place] Thyroid) 60 mg PO DAILY [facility] Last Admin: 11/19/16 09:16 Dose: 60 mg Discontinued Medications Hydromorphone HCl (Dilaudid) 1 mg IVPUSH ONETIME ONE Stop: 11/14/16 22:32 Last Admin: 11/14/16 22:36 Dose: 1 mg Hydromorphone HCl (Dilaudid) 1 mg IVPUSH Q2H PRN PRN Reason: Pain Last Admin: 11/19/16 06:38 Dose: 1 mg Sodium Chloride (Normal Saline) 1,000 mls @ 999 mls/hr IV STAT ONE Stop: 11/14/16 21:56 Last Admin: 11/14/16 21:13 Dose: 999 mls/hr Sodium Chloride (Normal Saline) 1,000 mls @ 150 mls/hr IV STAT [facility] Last Admin: 11/14/16 22:40 Dose: 150 mls/hr Sodium Chloride (Normal Saline) 1,000 mls @ 999 mls/hr IV ONETIME ONE Stop: 11/15/16 00:36 Last Admin: 11/14/16 23:36 Dose: 999 mls/hr Iopamidol (Isovue Multipack-370 (76%)) 100 ml IVPUSH ONETIME STA Stop: 11/14/16 22:05 Last Admin: 11/14/16 22:04 Dose: 100 ml Morphine Sulfate (Morphine) 2 mg IV ONETIME ONE Stop: 11/14/16 21:03 Last Admin: 11/14/16 21:16 Dose: 2 mg Morphine Sulfate (Morphine) 2 mg IVPUSH Q2H PRN PRN Reason: Abdominal Pain Last Admin: 11/15/16 19:35 Dose: 2 mg Ondansetron HCl (Zofran) 8 mg IVPUSH ONETIME ONE Stop: 11/14/16 20:57 Last Admin: 11/14/16 21:14 Dose: 8 mg
[2016-11-18] MEDS: Sertraline 50 MG Tab PO SCH (20:28)
[2016-11-19] MEDS: Promethazine 25 MG/ML SDV IM PRN ×5 (00:15→21:12)
[2016-11-19] MEDS: HYDROmorphone 1 MG/ML Syringe IVPUSH PRN ×3 (00:18→06:38)
[2016-11-19] MEDS: Sodium Chloride 0.9% 1,000 ML IV SCH ×3 (01:54→16:09)
[2016-11-19] MEDS: Ondansetron 4 MG/2 ML SDV IVPUSH PRN ×4 (03:44→18:22)
[2016-11-19] MEDS: Pantoprazole 40 MG in Sodium Chloride 0.9% 10 ML IVPUSH SCH (09:15)
[2016-11-19] MEDS: Thyroid 60 MG Tab PO SCH (09:16)
[2016-11-19] MEDS ORDERED: HYDROmorphone 2 MG Tab PO PRN (09:16)
--- NOTE | 2016-11-19 10:48 | CR ---
Single view chest There is is made to prior study dated November 17, 2016. There is a somewhat lordotic position allowin g for which there is no acute infiltrate failure or volume loss. Impression: No involving significant abnormality
--- NOTE | 2016-11-19 11:23 | PCM.PN ---
<Valente Rivers Z - Last Filed: 11/19/16 11:19> - General Info Date of Service: 11/19/16 Admission Dx/Problem (Free Text): Patient abdominal pain has improved. Patient still having nausea however she does want to try advancing her diet to full liquids We will be sufficient to patient's IV medication to oral pain medication. Patient is also encouraged to get up and walk as she has not been doing that and could cause risk for DVT. Patient is also encouraged to do the spirometry she will have a chest x-ray to ensure the patient has not developed a to [place] or pneumonia. Patient is afebrile. - Review of Systems General: Reports: Weakness, Fatigue HEENT: Reports: No Symptoms Pulmonary: Reports: Wheezing Cardiovascular: Reports: No Symptoms Gastrointestinal: Reports: Abdominal Pain Genitourinary: Reports: No Symptoms Musculoskeletal: Reports: No Symptoms Neurological: Reports: No Symptoms - Patient Data Vitals - Most Recent: Last Vital Signs Temp 37.2 C 11/19/16 08:00 Pulse 87 11/19/16 08:00 Resp 20 11/19/16 08:00 BP 139/80 11/19/16 08:00 Pulse Ox 93 L 11/19/16 08:00 Weight - Most Recent: 118.5 kg I&O - Last 24 Hours: Intake & Output 11/18/16 11/19/16 11/19/16 22:59 06:59 14:59 Intake Total 2984 1100 1000 Output Total 750 1000 Balance 2234 100 1000 Odilon Results Last 24 Hours: Microbiology 11/17/16 01:10 Aerobic Blood Culture - Preliminary Blood - Arm, Left NO GROWTH AFTER 2 DAYS Anaerobic Blood Culture - Final 11/17/16 01:00 Aerobic Blood Culture - Preliminary Blood - Arm, Left NO GROWTH AFTER 2 DAYS Anaerobic Blood Culture - Preliminary NO GROWTH AFTER 2 DAYS Med Orders - Current: Current Medications Acetaminophen (Tylenol) 325 mg PO Q4H PRN PRN Reason: Pain Last Admin: 11/17/16 06:20 Dose: 325 mg Sodium Chloride (Normal Saline) 1,000 mls @ 200 mls/hr IV ASDIRECTED [facility] Last Admin: 11/19/16 07:14 Dose: 200 mls/hr Pantoprazole Sodium 40 mg/ (Sodium Chloride) 10 mls @ 300 mls/hr IVPUSH DAILY [facility] Last Admin: 11/19/16 09:15 Dose: 300 mls/hr Ondansetron HCl (Zofran) 4 mg IVPUSH Q4H PRN PRN Reason: Nausea/Vomiting Last Admin: 11/19/16 09:14 Dose: 4 mg Oxycodone/Acetaminophen (Percocet 325-5 Mg) 1 tab PO Q6H PRN PRN Reason: Pain Promethazine HCl (Phenergan) 12.5 mg IM Q4H PRN PRN Reason: Nausea/Vomiting Last Admin: 11/19/16 11:06 Dose: 12.5 mg Sertraline HCl (Zoloft) 50 mg PO BEDTIME [facility] Last Admin: 11/18/16 20:28 Dose: 50 mg Thyroid (Andrew Thyroid) 60 mg PO DAILY [facility] Last Admin: 11/19/16 09:16 Dose: 60 mg Discontinued Medications Hydromorphone HCl (Dilaudid) 1 mg IVPUSH ONETIME ONE Stop: 11/14/16 22:32 Last Admin: 11/14/16 22:36 Dose: 1 mg Hydromorphone HCl (Dilaudid) 1 mg IVPUSH Q2H PRN PRN Reason: Pain Last Admin: 11/19/16 06:38 Dose: 1 mg Hydromorphone HCl (Dilaudid) 2 mg PO Q2H PRN PRN Reason: Abdominal Pain Last Admin: 11/19/16 09:30 Dose: 2 mg Sodium Chloride (Normal Saline) 1,000 mls @ 999 mls/hr IV STAT ONE Stop: 11/14/16 21:56 Last Admin: 11/14/16 21:13 Dose: 999 mls/hr Sodium Chloride (Normal Saline) 1,000 mls @ 150 mls/hr IV STAT [facility] Last Admin: 11/14/16 22:40 Dose: 150 mls/hr Sodium Chloride (Normal Saline) 1,000 mls @ 999 mls/hr IV ONETIME ONE Stop: 11/15/16 00:36 Last Admin: 11/14/16 23:36 Dose: 999 mls/hr Iopamidol (Isovue Multipack-370 (76%)) 100 ml IVPUSH ONETIME STA Stop: 11/14/16 22:05 Last Admin: 11/14/16 22:04 Dose: 100 ml Morphine Sulfate (Morphine) 2 mg IV ONETIME ONE Stop: 11/14/16 21:03 Last Admin: 11/14/16 21:16 Dose: 2 mg Morphine Sulfate (Morphine) 2 mg IVPUSH Q2H PRN PRN Reason: Abdominal Pain Last Admin: 11/15/16 19:35 Dose: 2 mg Ondansetron HCl (Zofran) 8 mg IVPUSH ONETIME ONE Stop: 11/14/16 20:57 Last Admin: 11/14/16 21:14 Dose: 8 mg - Exam Quality Assessment: Supplemental Oxygen General: Alert, Oriented HEENT: Pupils Equal Neck: Supple, Trachea Midline Lungs: Decreased Breath Sounds, Wheezing Cardiovascular: Regular Rate GI/Abdominal Exam: Tender, Abnormal Bowel Sounds Extremities: Normal Inspection - Problem List & Annotations (1) Pancreatitis SNOMED Code(s): 29343016 Code(s): K85.90 - ACUTE PANCREATITIS WITHOUT NECROSIS OR INFECTION, UNSP Status: Acute Current Visit: Yes (2) Abdominal pain SNOMED Code(s): 82698027 Code(s): R10.9 - UNSPECIFIED ABDOMINAL PAIN Status: Acute Current Visit: No Qualifiers: Abdominal location: right lower quadrant Qualified Code(s): R10.31 - Right lower quadrant pain - Problem List Review Problem List Initiated/Reviewed/Updated: Yes - My Orders Last 24 Hours: My Active Orders 11/19/16 Lunch Clear Liquid Diet [DIET] - Plan Plan:: assessment and plan 26 yo female admitted with acute pancreatitis. - Patient to advance diet to full liquid, by mouth pain medication present IV pain medication. - Patient receiving Phenergan as well as Zofran for nausea/vomiting continue to monitor the patient's status -She is ultrasound did not show any biliary dilatation or any gallstones. -Patient to encourage ambulation -She did get a chest x-ray to rule out atelectasis/pneumonia <Jay Layton - Last Filed: 11/19/16 18:00> - General Info Admission Dx/Problem (Free Text): I was present with the resident during history and examination. I discussed the case with the resident and agree with the findings and plan as documented in the residents note. - Patient Data Vitals - Most Recent: Last Vital Signs Temp 36.3 C 11/19/16 11:21 Pulse 87 11/19/16 11:21 Resp 22 H 11/19/16 11:21 BP 139/65 11/19/16 11:21 Pulse Ox 92 L 11/19/16 11:21 I&O - Last 24 Hours: Intake & Output 11/19/16 11/19/16 11/19/16 06:59 14:59 22:59 Intake Total 1100 1000 2569 Output Total 1000 950 Balance 100 1000 1619 Odilon Results Last 24 Hours: Microbiology 11/17/16 01:10 Aerobic Blood Culture - Preliminary Blood - Arm, Left NO GROWTH AFTER 2 DAYS Anaerobic Blood Culture - Final 11/17/16 01:00 Aerobic Blood Culture - Preliminary Blood - Arm, Left NO GROWTH AFTER 2 DAYS Anaerobic Blood Culture - Preliminary NO GROWTH AFTER 2 DAYS Med Orders - Current: Current Medications Acetaminophen (Tylenol) 325 mg PO Q4H PRN PRN Reason: Fever Last Admin: 11/19/16 17:36 Dose: 325 mg Sodium Chloride (Normal Saline) 1,000 mls @ 200 mls/hr IV ASDIRECTED [facility] Last Admin: 11/19/16 16:09 Dose: 200 mls/hr Pantoprazole Sodium 40 mg/ (Sodium Chloride) 10 mls @ 300 mls/hr IVPUSH DAILY [facility] Last Admin: 11/19/16 09:15 Dose: 300 mls/hr Ondansetron HCl (Zofran) 4 mg IVPUSH Q4H PRN PRN Reason: Nausea/Vomiting Last Admin: 11/19/16 13:14 Dose: 4 mg Oxycodone/Acetaminophen (Percocet 325-5 Mg) 1 tab PO Q6H PRN PRN Reason: Pain Last Admin: 11/19/16 13:14 Dose: 1 tab Promethazine HCl (Phenergan) 12.5 mg IM Q4H PRN PRN Reason: Nausea/Vomiting Last Admin: 11/19/16 16:57 Dose: 12.5 mg Sertraline HCl (Zoloft) 50 mg PO BEDTIME [facility] Last Admin: 11/18/16 20:28 Dose: 50 mg Thyroid (Andrew Thyroid) 60 mg PO DAILY [facility] Last Admin: 11/19/16 09:16 Dose: 60 mg Discontinued Medications Acetaminophen (Tylenol) 325 mg PO Q4H PRN PRN Reason: Pain Last Admin: 11/17/16 06:20 Dose: 325 mg Hydromorphone HCl (Dilaudid) 1 mg IVPUSH ONETIME ONE Stop: 11/14/16 22:32 Last Admin: 11/14/16 22:36 Dose: 1 mg Hydromorphone HCl (Dilaudid) 1 mg IVPUSH Q2H PRN PRN Reason: Pain Last Admin: 11/19/16 06:38 Dose: 1 mg Hydromorphone HCl (Dilaudid) 2 mg PO Q2H PRN PRN Reason: Abdominal Pain Last Admin: 11/19/16 09:30 Dose: 2 mg Sodium Chloride (Normal Saline) 1,000 mls @ 999 mls/hr IV STAT ONE Stop: 11/14/16 21:56 Last Admin: 11/14/16 21:13 Dose: 999 mls/hr Sodium Chloride (Normal Saline) 1,000 mls @ 150 mls/hr IV STAT [facility] Last Admin: 11/14/16 22:40 Dose: 150 mls/hr Sodium Chloride (Normal Saline) 1,000 mls @ 999 mls/hr IV ONETIME ONE Stop: 11/15/16 00:36 Last Admin: 11/14/16 23:36 Dose: 999 mls/hr Iopamidol (Isovue Multipack-370 (76%)) 100 ml IVPUSH ONETIME STA Stop: 11/14/16 22:05 Last Admin: 11/14/16 22:04 Dose: 100 ml Morphine Sulfate (Morphine) 2 mg IV ONETIME ONE Stop: 11/14/16 21:03 Last Admin: 11/14/16 21:16 Dose: 2 mg Morphine Sulfate (Morphine) 2 mg IVPUSH Q2H PRN PRN Reason: Abdominal Pain Last Admin: 11/15/16 19:35 Dose: 2 mg Ondansetron HCl (Zofran) 8 mg IVPUSH ONETIME ONE Stop: 11/14/16 20:57 Last Admin: 11/14/16 21:14 Dose: 8 mg
[2016-11-19] MEDS: Acetaminophen/oxyCODONE 325-5 MG Tab PO PRN ×2 (13:14→18:37)
[2016-11-19] MEDS: Acetaminophen 325 MG Tab PO PRN (17:36)
[2016-11-19] MEDS ORDERED: Acetaminophen/oxyCODONE 325-5 MG Tab PO PRN (18:35)
[2016-11-19] MEDS: Sertraline 50 MG Tab PO SCH (20:14)
[2016-11-19] MEDS: Acetaminophen/oxyCODONE 325-10 MG Tab PO PRN (21:12)
[2016-11-20] MEDS: Ondansetron 4 MG/2 ML SDV IVPUSH PRN ×2 (02:05→07:43)
[2016-11-20] MEDS: Sodium Chloride 0.9% 1,000 ML IV SCH ×2 (02:08→07:17)
[2016-11-20] MEDS: Acetaminophen 325 MG Tab PO PRN ×2 (02:14→07:43)
[2016-11-20] MEDS: Acetaminophen/oxyCODONE 325-10 MG Tab PO PRN ×2 (03:52→10:14)
[2016-11-20 05:49] LABS: CHLORIDE,CL 111 mmol/L (98-110); SODIUM,NA 143 mmol/L (136-146)
[2016-11-20] MEDS: Thyroid 60 MG Tab PO SCH (08:00)
[2016-11-20] MEDS: Pantoprazole 40 MG in Sodium Chloride 0.9% 10 ML IVPUSH SCH (08:00)
[2016-11-20 08:14] VITALS: BP 128/66
[2016-11-20] MEDS ORDERED: Potassium Chloride 20 MEQ Tab.ER PO SCH (09:00)
[2016-11-20] MEDS: Promethazine 25 MG/ML SDV IM PRN (10:22)
--- NOTE | 2016-11-25 22:50 | PCM.DCSUM1 ---
Discharge Summary - Hospital Course Free Text/Narrative:: Discharge Summary Date of admission: 11/15/2016 Date of discharge: 11/20/2016 Admitting diagnosis: #1. Acute epigastric pain pancreatitis versus possible. Duct dilation status post cholelithiasis with a cholecystectomy done in the past #2. Elevated lipase level #3. Nausea vomiting #4. Unable to tolerate by mouth #5. Discharge diagnoses: #1. Acute on chronic pancreatitis #2. Abdominal pain resolving #3. Nausea vomiting now resolved #4. #5. Consultations: None Procedures: None Hospitalization course: Patient was admitted on 11/15/2016 secondary to severe acute epigastric pain. Initially differential diagnosis included biliary duct stones which can happen even in the setting of a cholecystectomy versus pancreatitis versus gastric ulcers. However due to the increased lipase level and imaging that showed edema and fluid around the pancreas had it was determined that the patient had acute pancreatitis. Patient was made nothing by mouth and given IV pain medication and fluids as management. Her nausea and vomiting was controlled with Zofran. Patient had a very difficult time with nausea and vomiting despite Zofran as a result the patient also required the addition of Reglan. As well as abdominal pain did continue to become bothersome which required an increase in the patient's opioid pain control medications. However vital signs were stable her laboratory data was also stable. And towards the end of the stay the patient was able to tolerate by mouth more and more to the point where the patient was on a regular diet and ambulating without significant abdominal pain and was ready to be discharged. Patient was discharged with Zofran, opioid pain medication until the patient sees her primary care physician told to avoid and cryptitis triggers including alcohol, high fatty diet. Patient also told to follow-up with her primary care physician and get an appointment with a interventional cigar packing examiner for ERCP to get a full assessment of her pancreatitis. Disposition on discharge: Home Condition on discharge: Stable, tolerating by mouth, no nausea vomiting diarrhea or constipation Discharge medications: Zofran, oxycodone Follow-up instructions: Follow-up with patient's primary care physician within one week for secondary referral to GI for ERCP - Discharge Data Discharge Date: 11/20/16 Discharge Disposition: Home, Self-Care 01 Condition: Good - Discharge Diagnosis/Problem(s) (1) Pancreatitis SNOMED Code(s): 46118691 ICD Code: K85.90 - ACUTE PANCREATITIS WITHOUT NECROSIS OR INFECTION, UNSP Status: Acute (2) Abdominal pain SNOMED Code(s): 61957199 ICD Code: R10.9 - UNSPECIFIED ABDOMINAL PAIN Status: Acute Qualifiers: Abdominal location: right lower quadrant Qualified Code(s): R10.31 - Right lower quadrant pain - Discharge Plan Prescriptions/Med Rec: Ondansetron [Zofran] 4 mg PO Q4H PRN #24 tab PRN Reason: Nausea/Vomiting oxyCODONE HCl/Acetaminophen [Percocet 10-325 mg Tablet] 1 each PO Q6H PRN #20 tablet PRN Reason: Abdominal Pain Home Medications: Home Meds Sertraline [Zoloft] 50 mg PO BEDTIME 11/14/16 [History] Thyroid,Pork [[place] Thyroid] 1 tab PO DAILY 11/14/16 [History] Ondansetron [Zofran] 4 mg PO Q4H PRN #24 tab 11/20/16 [Rx] oxyCODONE HCl/Acetaminophen [Percocet 10-325 mg Tablet] 1 each PO Q6H PRN #20 tablet 11/20/16 [Rx] Patient Handouts: Ondansetron tablets, Acetaminophen; Oxycodone tablets, Acute Pancreatitis Referrals: Loren Valentino NP [Nurse Practitioner] - 11/25/16 9:00 am () - Discharge Summary/Plan Comment DC Time >30 min.: No - Patient Data Vitals - Most Recent: Last Vital Signs Temp 37.2 C 11/20/16 08:00 Pulse 95 11/20/16 08:00 Resp 20 11/20/16 08:00 BP 128/66 11/20/16 08:00 Pulse Ox 93 L 11/20/16 08:00 Weight - Most Recent: 118.5 kg Med Orders - Current: Current Medications Discontinued Medications Acetaminophen (Tylenol) 325 mg PO Q4H PRN PRN Reason: Pain Last Admin: 11/17/16 06:20 Dose: 325 mg Acetaminophen (Tylenol) 325 mg PO Q4H PRN PRN Reason: Fever Last Admin: 11/20/16 07:43 Dose: 325 mg Hydromorphone HCl (Dilaudid) 1 mg IVPUSH ONETIME ONE Stop: 11/14/16 22:32 Last Admin: 11/14/16 22:36 Dose: 1 mg Hydromorphone HCl (Dilaudid) 1 mg IVPUSH Q2H PRN PRN Reason: Pain Last Admin: 11/19/16 06:38 Dose: 1 mg Hydromorphone HCl (Dilaudid) 2 mg PO Q2H PRN PRN Reason: Abdominal Pain Last Admin: 11/19/16 09:30 Dose: 2 mg Sodium Chloride (Normal Saline) 1,000 mls @ 999 mls/hr IV STAT ONE Stop: 11/14/16 21:56 Last Admin: 11/14/16 21:13 Dose: 999 mls/hr Sodium Chloride (Normal Saline) 1,000 mls @ 150 mls/hr IV STAT [facility] Last Admin: 11/14/16 22:40 Dose: 150 mls/hr Sodium Chloride (Normal Saline) 1,000 mls @ 999 mls/hr IV ONETIME ONE Stop: 11/15/16 00:36 Last Admin: 11/14/16 23:36 Dose: 999 mls/hr Sodium Chloride (Normal Saline) 1,000 mls @ 200 mls/hr IV ASDIRECTED [facility] Last Admin: 11/20/16 07:17 Dose: 200 mls/hr Pantoprazole Sodium 40 mg/ (Sodium Chloride) 10 mls @ 300 mls/hr IVPUSH DAILY [facility] Last Admin: 11/20/16 08:00 Dose: 300 mls/hr Iopamidol (Isovue Multipack-370 (76%)) 100 ml IVPUSH ONETIME STA Stop: 11/14/16 22:05 Last Admin: 11/14/16 22:04 Dose: 100 ml Morphine Sulfate (Morphine) 2 mg IV ONETIME ONE Stop: 11/14/16 21:03 Last Admin: 11/14/16 21:16 Dose: 2 mg Morphine Sulfate (Morphine) 2 mg IVPUSH Q2H PRN PRN Reason: Abdominal Pain Last Admin: 11/15/16 19:35 Dose: 2 mg Ondansetron HCl (Zofran) 8 mg IVPUSH ONETIME ONE Stop: 11/14/16 20:57 Last Admin: 11/14/16 21:14 Dose: 8 mg Ondansetron HCl (Zofran) 4 mg IVPUSH Q4H PRN PRN Reason: Nausea/Vomiting Last Admin: 11/20/16 07:43 Dose: 4 mg Oxycodone/Acetaminophen (Percocet 325-5 Mg) 1 tab PO Q6H PRN PRN Reason: Pain Last Admin: 11/19/16 18:37 Dose: 1 tab Oxycodone/Acetaminophen (Percocet 325-5 Mg) 0 tab PO Q4H PRN PRN Reason: pain Oxycodone/Acetaminophen (Percocet 325-10 Mg) 1 tab PO Q6H PRN PRN Reason: Pain Last Admin: 11/20/16 10:14 Dose: 1 tab Potassium Chloride (Klor-Con M20) 20 meq PO BID [facility] Last Admin: 11/20/16 10:14 Dose: 20 meq Promethazine HCl (Phenergan) 12.5 mg IM Q4H PRN PRN Reason: Nausea/Vomiting Last Admin: 11/20/16 10:22 Dose: 12.5 mg Sertraline HCl (Zoloft) 50 mg PO BEDTIME [facility] Last Admin: 11/19/16 20:14 Dose: 50 mg Thyroid ([place] Thyroid) 60 mg PO DAILY [facility] Last Admin: 11/20/16 08:00 Dose: 60 mg *Q Meaningful Use (DIS) - VTE *Q VTE Criteria *Q: - Stroke *Q Stroke Criteria *Q: - AMI *Q AMI Criteria *Q:
== END 2016-11-20 11:10 | disposition home or self-care (01) | DRG 440 ==
LOC: MW.ED 20:44 → MW.MS 22:37
PROVIDERS: ADMIT Internal Medicine; ATTEND Internal Medicine
DX: K85.90 Acute pancreatitis without necrosis or infection, unspecified (principal); R11.2 Nausea with vomiting, unspecified; E20.9 Hypoparathyroidism, unspecified; F41.8 Other specified anxiety disorders; Z88.0 Allergy status to penicillin; Z88.2 Allergy status to sulfonamides; Z79.899 Other long term (current) drug therapy
CPT/HCPCS: 36415; 71010; 71010-26; 74178; 74178-26; 76705; 76705-26; 80048; 80053; 80061; 81001; 81025; 82150; 83690; 83735; 84100; 85025; 87040; 96361; 96374; 96375; 99283; 99285-25; A9270-GY; C9113; J1170; J2270; J2405; J2550; J7040; Q9967